=== PATIENT | female | born 1950 | race Caucasian/White ===

== ENCOUNTER → 2024-01-05 16:01 | Outpatient (REF) | payer MEDICARE, OTHER, SELFPAY ==
[2024-01-05 17:53] LABS: % Basophils 0.7 % (0-2); % Eosinophils 1.4 % (0-6); % Immature Granulocytes 0.7 % (0-0.5); % Lymphocytes 28.9 % (20.5-51.1); % Monocytes 10.6 % (1.7-9.3); % Neutrophils 57.7 % (42.2-75.2); Absolute Basophils 0.1 10^3/uL (0-0.2); Absolute Eosinophils 0.1 10^3/uL (0-0.7); Absolute Immature Granulocytes 0.1 10^3/uL (0-0.05); Absolute Lymphocytes 2.1 10^3/uL (1.2-3.4); Absolute Monocytes 0.8 10^3/uL (0.1-0.6); Absolute Neutrophils 4.2 10^3/uL (1.4-6.5); Hemoglobin 12.7 g/dL (12.0-16.0); Mean Corp Hgb Conc. 33.4 g/dL (33.0-37.0); Mean Corpuscular Hgb 29.9 pg (27.0-31.0); Mean Corpuscular Volume 89.4 fL (81.0-99.0); Mean Platelet Volume 9.4 fL (7.4-10.4); Nucleated Red Blood Cells % 0 %; Platelet Count 272 10^3/uL (130-400); Red Blood Cell Count 4.25 10^6/uL (4.20-5.40); Red Cell Dist. Width 14.1 % (11.5-14.5); White Blood Cell Count 7.3 10^3/uL (4.8-10.8)
[2024-01-05 18:17] LABS: ALT (SGPT) 22 U/L (0-35); AST (SGOT) 33 U/L (14-36); Albumin 4.1 g/dl (3.5-5.0); Alkaline Phosphatase 103 U/L (38-126); Blood Urea Nitrogen 16 mg/dl (7-17); Calcium 9.8 mg/dl (8.4-10.2); Carbon Dioxide 32 mmol/L (22-30); Chloride 100 mmol/L (98-107); Glucose 84 mg/dl (70-99); Potassium 3.9 mmol/L (3.5-5.1); Sodium 142 mmol/L (135-145); Total Bilirubin 0.9 mg/dl (0.2-1.3); Total Protein 6.5 g/dl (6.3-8.2); eGFR > 60.00
[2024-01-05 18:18] LABS: Uric Acid 3.7 mg/dl (2.5-6.2)
[2024-01-05 18:23] LABS: C-Reactive Protein < 5.00 mg/L (0.0-10.00)
[2024-01-06 17:15] LABS: Lyme Antibody Screen, EIA Negative (Negative)
== END ==
LOC: REG 16:01
PROVIDERS: ATTENDING PHYSICIAN Internal Medicine Rheumatology; FAMILY PHYSICIAN Internal Medicine
DX: M25.571 Pain in right ankle and joints of right foot (principal); A69.20 Lyme disease, unspecified; M05.9 Rheumatoid arthritis with rheumatoid factor, unspecified
CPT/HCPCS: 36415; 73610; 80053; 84550; 85025; 86140; 86618

== ENCOUNTER → 2024-03-16 12:54 | Outpatient (REF) | payer MEDICARE, OTHER, SELFPAY | LOC: RAD 12:54 | PROVIDERS: ATTENDING PHYSICIAN Internal Medicine Rheumatology; FAMILY PHYSICIAN Internal Medicine | DX: M81.0 Age-related osteoporosis without current pathological fracture (principal) | CPT/HCPCS: 77080 ==

== ENCOUNTER 2024-07-11 06:51 | Emergency (ER) | payer MEDICARE, OTHER, SELFPAY ==
[2024-07-11 06:53] VITALS: BP 116/71
[2024-07-11 08:35] VITALS: BP 124/68
[2024-07-11 08:47] LABS: % Basophils 0.2 % (0-2); % Eosinophils 0.6 % (0-6); % Immature Granulocytes 0.4 % (0-0.5); % Lymphocytes 9.3 % (20.5-51.1); % Monocytes 5.1 % (1.7-9.3); % Neutrophils 84.4 % (42.2-75.2); Absolute Eosinophils 0.1 10^3/uL (0-0.7); Absolute Lymphocytes 0.9 10^3/uL (1.2-3.4); Absolute Monocytes 0.5 10^3/uL (0.1-0.6); Absolute Neutrophils 7.9 10^3/uL (1.4-6.5); Hematocrit 42.2 % (37.0-47.0); Hemoglobin 13.8 g/dL (12.0-16.0); Mean Corp Hgb Conc. 32.7 g/dL (33.0-37.0); Mean Corpuscular Hgb 29.4 pg (27.0-31.0); Mean Corpuscular Volume 89.8 fL (81.0-99.0); Mean Platelet Volume 9.2 fL (7.4-10.4); Nucleated Red Blood Cells % 0 %; Platelet Count 256 10^3/uL (130-400); Red Cell Dist. Width 13.2 % (11.5-14.5); White Blood Cell Count 9.4 10^3/uL (4.8-10.8)
--- NOTE | 2024-07-11 08:54 | ED.GENMED ---
History of Present Illness
General
Chief Complaint: Abdominal Symptoms
Source: patient
Exam Limitations: none
Time Seen by Provider: 07/11/24 08:32
History of Present Illness
History of Present Illness:
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 The pain is persistent. She denies any blood in the vomit or the stool. She feels fatigued and very dry. She notes chills and
sweats but no measurable fever. She has a history of myocardial infarction and cardiac arrest. Currently does not take any blood thinners. No known sick contacts. No prior abdominal surgical history. No other complaints
Past History
Past History
ED Past Medical History: Arrthythmia (Atrial fib related to Graves' disease/hyperthyroidism), CAD, GERD, HTN, Hypercholesterolemia, [place] (x2), Hypothyroidism, Psychiatric and Other (cardiac arrest, osteoarthritis, Colitis, vertigo)
ED Past Surgical History: Appendectomy, Cardiac (PTCA with stent �2) and Gynecological
Social History
Tobacco: Non-smoker
Alcohol: Occasional
Personal:
Living: with family
Employment: Employed (RN)
Family History
Family History: Other (Noncontributory)
Phy Exam
Physical Exam
Physical Exam:
General: Well-appearing female no respiratory distress
HEENT normocephalic neck is supple mucosa dry
Heart: Regular rate and rhythm
Lungs: Clear no wheeze
Abdomen soft diffusely tender mild guarding no rebound tenderness normal bowel sounds nondistended
Extremities: No cyanosis
Skin: Warm no rash
Course
Orders/Labs/Results
Orders:
Orders
07/11/24 08:34
Complete Blood Count/With Diff Urgent
Comprehensive Metabolic Panel Urgent
Lipase Urgent
07/11/24 08:54
CT Abd/pelvis W Iv Cont Urgent
Comment:
Reason For Exam: abdominal pain
0.9% Sodium Chloride 1000 ml [Nss] 1,000 ml IV BOLUS
07/11/24 09:05
Prochlorperazine [Compazine] 10 mg IV NOW STA
07/11/24 09:42
Norovirus by PCR Urgent
ZITA Source: Feces/Stool
Specimen Description:
Date Specimen was Collected: 07/11/24
Time Specimen was Collected: 09:34
STOOL [C difficile Antigen & Toxins] Urgent
ZITA Source: Feces/Stool
Specimen Description:
Date Specimen was Collected: 07/11/24
Time Specimen was Collected: 09:34
Stool Culture Urgent
ZITA Source: Feces/Stool
Specimen Description:
Date Specimen was Collected: 07/11/24
Time Specimen was Collected: 09:34
07/11/24 11:38
Famotidine [Pepcid] 20 mg IV NOW STA
Abnormal Lab Results
07/11/24
08:34
MCHC 32.7 L g/dL
(33.0-37.0)
Absolute Neuts (auto) 7.9 H 10^3/uL
(1.4-6.5)
Absolute Lymphs (auto) 0.9 L 10^3/uL
(1.2-3.4)
Neutrophils % 84.4 H %
(42.2-75.2)
Lymphocytes % 9.3 L %
(20.5-51.1)
BUN 21 H mg/dl
(7-17)
Glucose 177 H mg/dl
(70-99)
07/11/24 08:34
07/11/24 08:34
Vital Signs
Initial and Last Documented VS:
Initial Vital Signs
Temp Pulse Resp BP Pulse Ox
97.9 F 94 16 116/71 99
07/11/24 06:53 07/11/24 06:53 07/11/24 06:53 07/11/24 06:53 07/11/24 06:53
Last Documented Vital Signs
Temp Pulse Resp BP Pulse Ox
97.9 F 93 16 121/69 96
07/11/24 06:53 07/11/24 10:17 07/11/24 10:17 07/11/24 10:17 07/11/24 10:17
MDM/Problems Addressed
Differential Diagnosis Includes:
Abdominal pain with vomiting and diarrhea. Question viral illness versus colitis versus enteritis versus electrolyte abnormality.
Will check labs. Fluids ordered. CT pending given the tenderness on exam
*Critical Care Note
Total Time (30-74mins, 75-104mins- exclusive of procedures): Not Applicable
Update Note
Update Note:
CT shows gastroenteritis. Patient tested positive for norovirus. She was hydrated here given Pepcid Compazine and is tolerating oral fluids. Will recommend nausea control at home with plenty of hydration. Stable for discharge
ED Attending Note
-
Portions of this chart may have been created with voice recognition software.� Occasional wrong word or��sound alike� substitutions may have occurred due to the inherent limitations of voice recognition software.
Discharge Plan
Departure
Patient Disposition: Home (Routine Discharge)
Date of Disposition: 07/11/24
Time of Disposition: 12:16
Patient with high blood pressure during this ER visit?: No
Discharge Problem:
Norovirus
Instructions: Diarrhea in teens and adults
Prescriptions:
No Action
sennosides [senna] 8.6 MG tablet
1 tab PO HS
aspirin [Aspir-Low] 81 MG tablet,delayed release (DR/EC)
81 mg PO DAILY
alprazolam 0.5 MG tablet
0.5 mg PO PRN PRN (Reason: anxiety)
lansoprazole [Prevacid] 15 MG capsule,delayed release(DR/EC)
30 mg PO DAILY
zolpidem [Ambien] 10 MG tablet
10 mg PO HS
buspirone [BuSpar] 15 MG tablet
10 mg PO DAILY
rosuvastatin [Crestor] 10 MG tablet
10 mg PO HS
cetirizine [Zyrtec] 10 MG tablet,disintegrating
10 mg PO HS
Vitamin D3
2,000 units PO DAILY
tramadol-acetaminophen 1 EACH tablet
1 tab PO TID
losartan 50 MG tablet
100 mg PO HS
metoprolol succinate 50 MG tablet extended release 24 hr
50 mg PO HS
amlodipine 5 MG tablet
5 mg PO DAILY
levothyroxine 112 MCG tablet
88 mcg PO DAILY
buspirone [BuSpar] 15 MG tablet
15 mg PO HS
melatonin 3 MG tablet
5 mg PO HS
tramadol-acetaminophen [Ultracet] 1 EACH tablet
2 ea PO BID
tramadol-acetaminophen [Ultracet] 1 EACH tablet
2 ea PO PRN PRN (Reason: pain)
buspirone [BuSpar] 15 MG tablet
15 mg PO PRN PRN (Reason: stress)
gabapentin 300 MG capsule
300 mg PO BID
meclizine 25 MG tablet
25 mg PO QIDPRN PRN (Reason: dizziness or nausea) Qty: 30 0RF
Referrals:
Polly Douglas MD [Family Provider] -
Activity Restrictions/Additional Instructions:
Drink plenty of fluids. You may continue with Pepcid or other antacids. Return for worsening symptoms otherwise follow-up with your doctor
Interventions
Interventions:
*Risk Screen - Suicide Last Done: 07/11/24 06:53
*General Assessment Last Done: 07/11/24 08:38
*Neglect/Abuse Screening Last Done: 07/11/24 06:53
*ED- Fall Risk Assessment Last Done: 07/11/24 10:02
*ED COVID-19 Vaccine History Last Done: 07/11/24 08:38
VV-Ukuwqo-Frvtptveua Assessment Last Done: 07/11/24 08:38
Discharge Date and Time
Print Language: LITHUANIAN
[2024-07-11] MEDS: NSS 1000 IV (08:57)
[2024-07-11] MEDS: COMPAZINE 10 MG IV (09:09)
[2024-07-11 09:11] LABS: ALT (SGPT) 16 U/L (0-35); AST (SGOT) 27 U/L (14-36); Alkaline Phosphatase 91 U/L (38-126); Blood Urea Nitrogen 21 mg/dl (7-17); Calcium 9.6 mg/dl (8.4-10.2); Carbon Dioxide 26 mmol/L (22-30); Chloride 104 mmol/L (98-107); Glucose 177 mg/dl (70-99); Lipase 109 U/L (23-300); Potassium 4.2 mmol/L (3.5-5.1); Sodium 137 mmol/L (135-145); Total Bilirubin 0.9 mg/dl (0.2-1.3); Total Protein 6.3 g/dl (6.3-8.2); eGFR > 60.00
[2024-07-11 10:17] VITALS: BP 121/69
[2024-07-11] MEDS: PEPCID 20 MG IV (11:46)
== END 2024-07-11 12:50 | disposition home or self-care (01) ==
LOC: EMR 06:51
PROVIDERS: EMERGENCY PHYSICIAN Emergency Medicine; FAMILY PHYSICIAN Internal Medicine
DX: A08.39 Other viral enteritis (principal); A08.11 Acute gastroenteropathy due to Norwalk agent; I25.10 Atherosclerotic heart disease of native coronary artery without angina pectoris; K21.9 Gastro-esophageal reflux disease without esophagitis; I10 Essential (primary) hypertension; E78.00 Pure hypercholesterolemia, unspecified; E07.89 Other specified disorders of thyroid; Z90.49 Acquired absence of other specified parts of digestive tract; Z95.5 Presence of coronary angioplasty implant and graft; Z86.74 Personal history of sudden cardiac arrest; I25.2 Old myocardial infarction
CPT/HCPCS: 96374; 96375; 96361; 99284; 74177; 80053; 83690; 85025; 87045; 87046; 87077; 87324; 87427; 87449; 87798; Q9967